=== PATIENT | female | born 1970 | race Two or more races ===

== ENCOUNTER 2016-05-20 12:59 | Emergency (ER) | payer BC ==
[~2016-05-20] VITALS: Ht 162.6 cm; Wt 70.3 kg
[2016-05-20] MEDS ORDERED: NKM (13:24)
[2016-05-20 14:01] VITALS: BP 123/73
[2016-05-20] MEDS ORDERED: ZOFRAN ODT4 MG ORAL (14:14)
[2016-05-20] MEDS ORDERED: NORCO 5-325 TA1 EACH ORAL (14:14)
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
[2016-05-20 15:15] VITALS: BP 124/86
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
== END 2016-05-20 15:15 | disposition home or self-care (01) ==
LOC: EMR 13:35
DX: S09.90XA Unspecified injury of head, initial encounter (principal); R11.0 Nausea; X58.XXXA Exposure to other specified factors, initial encounter; Y93.9 Activity, unspecified; Y92.9 Unspecified place or not applicable
CPT/HCPCS: 70450; 99284

== ENCOUNTER 2016-12-18 18:31 | Emergency (ER) | payer BC ==
[~2016-12-18] VITALS: Ht 160 cm; Wt 70.3 kg
[~2016-12-18 18:31] MED LIST: NKM; NORCO 5-325 TA1 EACH ORAL; ZOFRAN ODT4 MG ORAL
[2016-12-18 18:34] VITALS: BP 130/90
[2016-12-18] MEDS ORDERED: KEFLEX500 MG ORAL (19:00)
[2016-12-18] MEDS ORDERED: Cephalexin 500mg cap ORAL ONE (19:00)
[2016-12-18 19:10] VITALS: BP 125/81
--- NOTE | 2016-12-18 19:10 | Emergency Room Report ---
History of Present Illness General Chief Complaint: Skin Rash/Abscess Source: Patient Present Illness HPI Patient present with complaints of redness to the right back of the leg She feels that there was initially some increased redness The localized area appears to have blistered under some increased redness at the site patient has some mild itching to the area she feels that it was likely bit by an insect denies any calf pain Denies any muscle pain or cramping denies any abdominal pain Denies any nausea vomiting Denies any fevers or chills Allergies: Coded Allergies: Mosquito (Verified Allergy, Unknown, 12/18/16) Patient History Past Medical History: see triage record Pertinent Family History: none Last Menstrual Period: 12/02/16 Now: No Reviewed Nursing Documentation: PMH: Agreed, PSxH: Agreed Review of Systems All Other Systems: negative except mentioned in HPI Physical Exam Vital Signs Date Time Temp Pulse Resp B/P (MAP) Pulse Ox O2 Delivery O2 Flow Rate FiO2 12/18/16 18:34 98.4 114 15 130/90 96 Room Air Sp02 EP Interpretation: reviewed, normal General Appearance: well appearing, no apparent distress Head: normocephalic, atraumatic Eyes: bilateral eye PERRL, bilateral eye EOMI ENT: normal pharynx, no angioedema Neck: supple Respiratory: normal breath sounds Gastrointestinal: non tender, soft Musculoskeletal: normal inspection Neurologic: alert, oriented x3 Skin: other - There is a small blister formation at what appears to be a focal site of likely insect bite with localized mild erythema around it, no obvious fluctuance no flaring there was a very fine circular erythematous hue that appears to have been forming but no obvious fluctuance, , Lymphatic: no adenopathy Medical Decision Making Diagnostic Impression: Primary Impression: cellulitis ER Course Patient's father in line with what appears to be likely an infected insect bite No obvious areas requiring incision at this time Patient will be placed on oral antibiotics and will have initial conservative outpatient trial Last Vital Signs Date Time Temp Pulse Resp B/P (MAP) Pulse Ox O2 Delivery O2 Flow Rate FiO2 12/18/16 18:34 98.4 114 15 130/90 96 Room Air Status: improved Disposition: HOME, SELF-CARE Condition: Improved Scripts Cephalexin* (KEFLEX*) 500 Mg Capsule 500 MG ORAL Q6H, #28 CAP 0 Refills Prov: GREMAN PAULA D.O. 12/18/16 Referrals: [facility],REFERRING (PCP) Patient Instructions: Cellulitis, [id number] Additional Instructions: Patient is provided with the discharge instructions notified to follow up with primary doctor in the next 2-3 days otherwise return to the er with any worsening symptoms. Please note that this report is being documented using DRAGON technology. This can lead to erroneous entry secondary to incorrect interpretation by the dictating instrument. GERMAN PAULA D.O. Dec 18, 2016 19:10
== END 2016-12-18 19:10 | disposition home or self-care (01) ==
LOC: EMR 18:57
DX: L03.115 Cellulitis of right lower limb (principal)
CPT/HCPCS: 99283

== ENCOUNTER 2017-09-28 12:37 | Emergency (ER) | payer BC ==
[~2017-09-28] VITALS: Ht 160 cm; Wt 68.0 kg
[~2017-09-28 12:37] MED LIST changes: +KEFLEX500 MG ORAL
[2017-09-28] MEDS ORDERED: PROGESTERONE100 MG PO (12:52)
[2017-09-28 12:55] VITALS: BP 130/87
[2017-09-28 13:32] LABS: APPEARANCE,URINE TURBID; BILIRUBIN, URINE NEGATIVE (NEGATIVE); COLOR,URINE PALE YELLOW; GLUCOSE, URINE (UA) NEGATIVE (NEGATIVE); KETONES,URINE NEGATIVE (NEGATIVE); LEUKOCYTE ESTERASE ,URINE 1+ (NEGATIVE); NITRITE,URINE NEGATIVE (NEGATIVE); PH,URINE 5 (4.5-8.0); PROTEIN,URINE NEGATIVE (NEGATIVE); UROBILINOGEN,URINE NORMAL MG/DL (0.0-1.0)
[2017-09-28 13:35] LABS: BASOPHILS % (AUTO) 0.8 % (0.0-2.0); EOSINOPHILS % (AUTO) 1.2 % (0.0-3.0); HEMATOCRIT 46.3 % (37.0-47.0); HEMOGLOBIN 15.6 G/DL (12.0-16.0); LYMPHOCYTES % (AUTO) 28.9 % (20.0-45.0); MEAN CORPUSCULAR VOLUME 92 FL (80-99); MONOCYTES % (AUTO) 8.3 % (1.0-10.0); NEUTROPHILS % (AUTO) 60.8 % (45.0-75.0); PLATELET COUNT 268 K/UL (150-450); RED BLOOD COUNT 5.06 M/UL (4.20-5.40); RED CELL DISTRIBUTION WIDTH 10.6 % (11.6-14.8); WHITE BLOOD COUNT 6.1 K/UL (4.8-10.8)
[2017-09-28 13:54] LABS: ANION GAP 7 mmol/L (5-15); BLOOD UREA NITROGEN 13 mg/dL (7-18); CALCIUM 9.3 MG/DL (8.5-10.1); CARBON DIOXIDE 27 MMOL/L (21-32); CHLORIDE 105 MMOL/L (98-107); CREATININE 0.8 MG/DL (0.55-1.30); POTASSIUM 3.2 MMOL/L (3.5-5.1); SODIUM 139 MMOL/L (136-145)
[2017-09-28 13:58] LABS: ALANINE AMINOTRANSFERASE 23 U/L (12-78); ALBUMIN 3.8 G/DL (3.4-5.0); ALKALINE PHOSPHATASE 57 U/L (46-116); ASPARTATE AMINO TRANSFERASE 14 U/L (15-37); BILIRUBIN,TOTAL 0.4 MG/DL (0.2-1.0)
[2017-09-28] MEDS ORDERED: Isovue-300 100ml vial INJ PRN (14:15)
[2017-09-28 14:30] VITALS: BP 123/82
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
[2017-09-28] MEDS ORDERED: CYCLOBENZAPRINE10 MG ORAL (15:10)
[2017-09-28] MEDS ORDERED: IBUPROFEN800 MG ORAL (15:10)
--- NOTE | 2017-09-28 15:37 | Diagnostic Imaging Report ---
Clinical Indication: Pain, status post fall Technique: No oral contrast utilized, per emergency room physician request IV administration nonionic contrast. Venous phase spiral acquisition obtained through the abdomen and pelvis. Multiplanar reconstructions were generated. Total dose length product 754.45 mGycm. CTDIvol(s) 13.88 mGy. Dose reduction achieved using automated exposure control Comparison: none Findings: Lack of enteric contrast limits assessment of the GI tract. There is a small amount of free pelvic fluid. The appendix is normal. No evidence of diverticulosis or diverticulitis. No small bowel distention. No free intraperitoneal air. Distal esophagus, stomach, duodenum are unremarkable. The liver, gallbladder, bile ducts, pancreas, spleen, adrenals, left kidney are all unremarkable. The right kidney demonstrates a subcentimeter low-attenuation lesion which is too small to characterize. No renal or ureteral calculi, hydronephrosis, or hydroureter. Uterus and ovaries are unremarkable. Unremarkable bladder. No pelvic mass or adenopathy. No retroperitoneal or mesenteric mass or adenopathy. The included lung bases are clear. The bones are unremarkable. There is no evidence of soft tissue contusion. Impression: Limited assessment of the GI tract, due to lack of enteric contrast administration Essentially unremarkable exam. No acute or significant abnormality demonstrated. No evidence of solid organ or bony trauma. No evidence of hematoma Trace free pelvic fluid, presumably physiologic Subcentimeter low-attenuation right renal lesion, too small to characterize, most likely benign simple cortical cyst The CT scanner at [facility] is accredited by the [employer] and the scans are performed using protocols designed to limit radiation exposure to as low as reasonably achievable to attain images of sufficient resolution adequate for diagnostic evaluation.
[2017-09-28] MEDS ORDERED: ROBAXIN-750750 MG PO (15:44)
[2017-09-28 16:00] VITALS: BP 132/91
[2017-09-28 16:02] VITALS: BP 132/91
== END 2017-09-28 16:01 | disposition home or self-care (01) ==
LOC: EMR 14:54
DX: S13.4XXA Sprain of ligaments of cervical spine, initial encounter (principal); V43.52XA Car driver injured in collision with other type car in traffic accident, initial encounter; Y92.410 Unspecified street and highway as the place of occurrence of the external cause
CPT/HCPCS: 36415; 74177; 80053; 81003; 81025; 85025; 96374; 99284; J2405; Q9967